=== PATIENT | male | born 1975 | race Caucasian/White ===

== ENCOUNTER 2023-12-03 15:31 | Emergency (ER) | payer MEDICAID, OTHER ==
[~2023-12-03] VITALS: Ht 165.1 cm; Wt 113.4 kg
[2023-12-03 16:14] VITALS: BP 126/80; PULSE 98; RESP 20; TEMP 98.1; O2SAT 96
[2023-12-03 16:59] LABS: FLU A ANTIGEN negative (NEGATIVE); FLU B ANTIGEN NEGATIVE (NEGATIVE)
[2023-12-03 18:15] VITALS: O2SAT 96
[2023-12-03] MEDS: NACL 0.9% 1,000 ML IV ONE (18:29)
[2023-12-03] MEDS ORDERED: cefTRIAXone 1,000 MG VIAL ONE (18:39)
[2023-12-03] MEDS: DEXAMETHASONE 10 MG/ML VIAL IM ONE (18:42)
[2023-12-03 18:45] VITALS: BP 127/75; PULSE 87; RESP 20; TEMP 98.1; O2SAT 99
[2023-12-03] MEDS: DEXAMETHASONE 10 MG/ML VIAL IVP ONE (18:48)
[2023-12-03] MEDS: KETOROLAC 30 MG/ML VIAL IVP ONE (18:48)
[2023-12-03] MEDS ORDERED: SULF-59 PO (19:07)
[2023-12-03] MEDS ORDERED: BENZ100C6 PO (19:07)
[2023-12-03] MEDS ORDERED: BENZ-256 MM (19:07)
[2023-12-03] MEDS ORDERED: PRED20TA5 PO (19:07)
[2023-12-03] MEDS: PENICILLIN G BENZATHINE L-A 1.2 MU/2 ML SYR IM ONE (19:35)
== END 2023-12-03 19:38 | disposition home or self-care (01) ==
LOC: MED 15:31
DX: J02.0 Streptococcal pharyngitis (principal); Z20.822 Contact with and (suspected) exposure to COVID-19; J05.10 Acute epiglottitis without obstruction; Z79.899 Other long term (current) drug therapy
CPT/HCPCS: 36415; 70360; 71045; 87040; 87081; 87426; 87804; 96365; 96372; 96375; 99284; J0561; J0696; J1100; J1885; J7030